=== PATIENT | male | born 1960 | race Caucasian/White ===

== ENCOUNTER 2023-05-18 09:12 | Outpatient (CLI) | payer MEDICARE, BC ==
[2023-05-18 12:25] LABS: HCT - HEMATOCRIT 46.3 % (42.0-52.0); HGB - HEMOGLOBIN 15.5 g/dL (14.0-18.0); MEAN CORPUSCULAR HEMOGLOBIN 30.6 pg (27.0-31.0); MEAN CORPUSCULAR HGB CONC 33.5 g/dL (32.0-36.0); MEAN CORPUSCULAR VOLUME 91.5 fL (80.0-94.0); MEAN PLATELET VOLUME 12.4 fL (7.4-11.4); RED BLOOD COUNT 5.06 10^6/uL (4.70-6.10); RED CELL DISTRIBUTION WIDTH 13.4 % (12.0-15.0); WHITE BLOOD COUNT 6.6 x10^3/uL (4.8-10.8)
[2023-05-18 12:55] LABS: ALBUMIN 4.4 g/dL (3.2-5.5); ALBUMIN/GLOBULIN RATIO 2.1 (1.0-2.2); ALKALINE PHOSPHATASE 87 IU/L (42-121); ALT ALANINE AMINOTRANSFERASE 23 IU/L (10-60); AST ASPARTATE AMINOTRANSFERASE 22 IU/L (10-42); BILIRUBIN,TOTAL 0.7 mg/dL (0.2-1.0); BUN - BLOOD UREA NITROGEN 16 mg/dL (6-20); CALCIUM 9.9 mg/dL (8.5-10.3); CARBON DIOXIDE - CO2 31 mmol/L (21-32); CHLORIDE 107 mmol/L (101-111); CHOL/HDL RATIO 3.7 (<5.0); CHOLESTEROL 168 mg/dL; CREATININE 0.9 mg/dL (0.6-1.3); GFR - MDRD 85 (>89); GLUCOSE 120 mg/dL (74-104); HDL CHOLESTEROL 45 mg/dL; LDL CHOLESTEROL,CALCULATED 106 mg/dL; LDL/HDL RATIO 2.4 (<3.6); POTASSIUM 4.7 mmol/L (3.5-4.5); SODIUM 141 mmol/L (135-145); TOTAL PROTEIN 6.5 g/dL (6.4-8.9); TRIGLYCERIDES 86 mg/dL (48-352); VLDL CHOLESTEROL 17 mg/dL
[2023-05-18 13:31] LABS: ESTIMATED AVERAGE GLUCOSE 114 mg/dL (70-100); HEMOGLOBIN A1c% 5.6 % (4.27-6.07)
[2023-05-18 18:38] LABS: FECAL OCCULT BLOOD (FIT) POSITIVE (NEGATIVE)
== END 2023-05-18 09:13 | disposition home or self-care (01) ==
LOC: LAB.N 09:12
PROVIDERS: ATTEND Family Medicine
DX: I10 Essential (primary) hypertension (principal); K21.9 Gastro-esophageal reflux disease without esophagitis; E78.5 Hyperlipidemia, unspecified; I25.2 Old myocardial infarction; I25.10 Atherosclerotic heart disease of native coronary artery without angina pectoris; Z12.11 Encounter for screening for malignant neoplasm of colon
CPT/HCPCS: 36415; 80053; 80061; 82274; 83036; 83721; 85027

== ENCOUNTER 2023-08-09 08:00 | Outpatient (CLI) | payer MEDICARE, OTHER ==
--- NOTE | 2023-08-09 15:13 | XRAY Report ---
PROCEDURE: Lumbar Spine 2 View INDICATIONS: LUMBAGO WITH SCIATICA, RIGHT SIDE TECHNIQUE: 3 views of the lumbar spine were acquired. COMPARISON: None. FINDINGS: Bones: 5 [id number]-[id number] vertebrae are present. There is trace retrolisthesis of L5 on S1. Multilev el degenerative changes are present most significant at L4-5 and L5-S1. Anterior osteophytes are most prominent at L2 and L3. No vertebral body compression fractures. No suspicious bony lesions. Soft tissues: Overlying bowel gas pattern is normal. No suspicious soft tissue calcifications. IMPRESSION: Prominent foraminal narrowing at L5-S1. Reviewed by: Lakisha Perry MD on 08/09/2023 3:11 PM PST Approved by: Lakisha Perry MD on 08/09/2023 3:11 PM PST Station ID: [id number]
== END 2023-08-09 23:59 | disposition home or self-care (01) ==
LOC: DI.S 08:00
PROVIDERS: ATTEND Physician Assistant
DX: M54.41 Lumbago with sciatica, right side (principal); M48.07 Spinal stenosis, lumbosacral region

== ENCOUNTER 2023-08-15 07:01 | Outpatient (CLI) | payer MEDICARE, OTHER ==
--- NOTE | 2023-08-15 09:41 | MRI Report ---
PROCEDURE: LUMBAR SPINE WO INDICATIONS: LUMBOSACRAL RADICULOPATHY TECHNIQUE: Noncontrast sagittal T1 spin echo and T2 fast echo, sagittal STIR, axial T1 and T2 fast spin echo thr ough the lumbar spine. In cases with scoliosis, additional coronal T2 fast spin echo may be performe d. COMPARISON: Lumbar spine plain films dated 08/09/2023. FINDINGS: Image quality: Excellent. Alignment and Curvature: There is normal bony alignment. Bone Marrow: Marrow is of normal overall signal. No acute vertebral body compression fractures. Spinal Cord: Conus medullaris terminates at the L2 level. Visualized cord demonstrates normal signa l and size. Paraspinous Soft Tissues: No paravertebral masses. Incidental note is made of severe bilateral foraminal narrowing at T11-T12, seen on sagittal imaging. T12-L1: Left facet hypertrophy. No canal stenosis. Mild left foraminal stenosis. L1-L2: Short pedicles. Minimal disc bulge. Facet hypertrophy. Borderline canal stenosis. Moderate bilateral foraminal stenosis with flattening deformity on the exiting bilateral L1 nerve roots. L2-L3: Short pedicles. Disc bulge. Facet hypertrophy. Borderline canal stenosis. Mild bilateral fo raminal stenosis. L3-L4: Short pedicles. Disc bulge. Prominent facet hypertrophy. Severe canal stenosis. There is an anterior medially directed facet joint cyst off of the left facet which contributes to central canal stenosis as well as severe left foraminal stenosis with left foraminal L3 nerve root impingement. L4-L5: Short pedicles. Disc bulge. Prominent facet and ligament hypertrophy. Severe canal stenosis. Moderate to severe right foraminal narrowing with a degree of right foraminal L4 nerve root impingem ent. Moderate left foraminal narrowing. L5-S1: Diffuse disc bulge with mild superimposed central posterior disc protrusion. Borderline jasmin l stenosis. Facet hypertrophy. Moderate to severe bilateral foraminal narrowing with a degree of bila teral foraminal L5 nerve root impingement. IMPRESSION: 1. 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 2. Canal stenosis is borderline at L2-L3, severe at L3-L4, and severe at L4-L5. 3. At L3-L4, and anterior medially directed facet joint cyst off the left facet contributes to centra l canal stenosis as well as severe left foraminal stenosis. 4. Multilevel foraminal narrowing as described above. Findings include severe left foraminal narrowin g at L3-L4, moderate to severe right foraminal narrowing at L4-L5, and moderate to severe bilateral f oraminal narrowing at L5-S1. 5. Incidental note made of severe bilateral foraminal narrowing at T11-T12, seen on the sagittal imag es. Reviewed by: Victor Hugo Guerra MD on 08/15/2023 9:40 AM PST Approved by: Victor Hugo Guerra MD on 08/15/2023 9:40 AM PST Station ID: [id number]
== END 2023-08-15 07:02 | disposition home or self-care (01) ==
LOC: DI 07:01
PROVIDERS: ATTEND Physician Assistant
DX: M47.26 Other spondylosis with radiculopathy, lumbar region (principal); M47.27 Other spondylosis with radiculopathy, lumbosacral region; M48.061 Spinal stenosis, lumbar region without neurogenic claudication; M71.38 Other bursal cyst, other site; M48.07 Spinal stenosis, lumbosacral region

== ENCOUNTER 2023-09-15 10:32 | Outpatient (CLI) | payer MEDICARE, OTHER ==
[2023-09-15 14:57] LABS: BASOPHILS # (AUTO) 0.1 10^3/uL (0.0-0.1); BASOPHILS % (AUTO) 1.7 %; EOSINOPHILS # (AUTO) 0.3 10^3/uL (0.0-0.7); EOSINOPHILS % (AUTO) 5.3 %; HCT - HEMATOCRIT 47.9 % (42.0-52.0); HGB - HEMOGLOBIN 15.7 g/dL (14.0-18.0); LYMPHOCYTES % (AUTO) 33.4 %; MEAN CORPUSCULAR HEMOGLOBIN 30.9 pg (27.0-31.0); MEAN CORPUSCULAR HGB CONC 32.8 g/dL (32.0-36.0); MEAN CORPUSCULAR VOLUME 94.3 fL (80.0-94.0); MEAN PLATELET VOLUME 12.4 fL (7.4-11.4); MONOCYTES # (AUTO) 0.5 10^3/uL (0.0-1.0); MONOCYTES % (AUTO) 8.7 %; NEUTROPHILS % (AUTO) 50.6 %; PLT - PLATELET COUNT 195 10^3/uL (130-450); RED BLOOD COUNT 5.08 10^6/uL (4.70-6.10); WHITE BLOOD COUNT 5.9 x10^3/uL (4.8-10.8)
[2023-09-15 15:46] LABS: ALBUMIN 4.1 g/dL (3.2-5.5); ALKALINE PHOSPHATASE 66 IU/L (42-121); ALT ALANINE AMINOTRANSFERASE 21 IU/L (10-60); AST ASPARTATE AMINOTRANSFERASE 19 IU/L (10-42); BILIRUBIN,TOTAL 0.6 mg/dL (0.2-1.0); BUN - BLOOD UREA NITROGEN 21 mg/dL (6-20); CALCIUM 9.4 mg/dL (8.5-10.3); CARBON DIOXIDE - CO2 26 mmol/L (21-32); CHLORIDE 108 mmol/L (101-111); CHOL/HDL RATIO 4.7 (<5.0); CHOLESTEROL 159 mg/dL; CREATININE 0.9 mg/dL (0.6-1.3); GFR - MDRD 85 (>89); GLUCOSE 100 mg/dL (74-104); HDL CHOLESTEROL 34 mg/dL; LDL CHOLESTEROL,CALCULATED 104 mg/dL; LDL/HDL RATIO 3.1 (<3.6); POTASSIUM 4.5 mmol/L (3.5-4.5); SODIUM 141 mmol/L (135-145); TOTAL PROTEIN 6.2 g/dL (6.4-8.9); TRIGLYCERIDES 105 mg/dL (48-352); VLDL CHOLESTEROL 21 mg/dL
[2023-09-15 15:59] LABS: THYROID STIMULATING HORMONE 1.45 uIU/mL (0.34-5.60)
[2023-09-15 20:39] LABS: ESTIMATED AVERAGE GLUCOSE 120 mg/dL (70-100); HEMOGLOBIN A1c% 5.8 % (4.27-6.07)
== END 2023-09-15 10:33 | disposition home or self-care (01) ==
LOC: LAB.S 10:32
PROVIDERS: ATTEND Physician Assistant Medical
DX: Z13.9 Encounter for screening, unspecified (principal)
CPT/HCPCS: 36415; 80053; 80061; 83036; 83721; 84153; 84443; 85025

== ENCOUNTER 2023-10-20 08:04 | Day surgery (SDC) | payer MEDICARE, OTHER ==
[2023-10-20] MEDS: LACTATED RINGERS 1,000 ML IV ONE ×2 (08:14→10:14)
--- NOTE | 2023-10-20 09:02 | ANESTHESIA ---
Pre-Anesthesia VS, & Labs - Diagnosis SCREENING - Procedure COLONOSCOPY Height: 6 ft 3 in Weight (kg): 99 kg Body Mass Index: 27.3 BMI Classification: Overweight - NPO >8 hours Last Fluid Intake: 0530 PREP Home Medications and Allergies Aspirin Chewable [[place] Aspirin] 1 tab ORAL DAILY 06/03/23 Atorvastatin Calcium 40 mg PO DAILY 06/03/23 Clopidogrel [Plavix] 75 mg PO DAILY 06/03/23 Lisinopril [Zestril] 20 mg PO 06/03/23 Nitroglycerin [Nitrostat] 0.6 mg SL DAILY PRN 06/03/23 Bolt-3/Dha/Epa/Fish Oil [Fish Oil 1,000 mg Softgel] 1 cap ORAL DAILY 06/03/23 carvediloL [Coreg] 1 tab ORAL DAILY 06/03/23 Allergies/Adverse Reactions: Allergies Allergy/AdvReac Type Severity Reaction Status Date / Time Penicillins AdvReac Rash Verified 10/20/23 08:25 Anes History & Medical History - Anesthetic History Anesthesia Complications: reports: No previous complications Family history of Anesthesia Complications: Denies - Medical History Cardiovascular: reports: Hypertension (CANCELLED IN AUG FOR HTN, TOOK LISINOPRIL THIS AM, [place] TWO YEARS AGO, UNABLE TO STENT VESSEL, TAKES PLAVIX, NEVER NITRO, ACTIVE NOW , PLAYS PICKLEBALL WITHOUT CP/SOB), High cholesterol, Other Pulmonary: reports: None Gastrointestinal: reports: None, Other Urinary: reports: Other Musculoskeletal: reports: None Endocrine/Autoimmune: reports: None Skin: reports: Other - Surgical History General: reports: Colonoscopy Cardiothoracic: reports: Other Orthopedic: reports: Other Dermatologic: reports: Skin cancer surgery Results - EKG Results EKG Comparison: Reviewed EKG, Normal EKG Exam General: Alert Dental: WNL Mouth Openin Fingerbreadth Neck Mobility: Normal Mallampati classification: II Thyromental Distance: 4-6 cm Plan Anesthesia Type: Total IV Consent for Procedure(s) Verified and Reviewed: Yes Code Status: Attempt Resuscitation ASA classification: 2-Mild systemic disease Is this case an emergency?: No
[2023-10-20] MEDS ORDERED: PROPOFOL 500 MG/50 ML 500 MG/50 ML VIAL ONE (09:29)
[2023-10-20] MEDS ORDERED: PROPOFOL 200 MG/20 ML VIAL IVP ONE (09:31)
--- NOTE | 2023-10-20 09:36 | HISTORY & PHYSICAL EXAMINATION ---
Chief Complaint - Chief Complaint Chief Complaint: here for colonoscopy History of Present Illness - History Obtained From Records Reviewed: yes History obtained from: pt Exam Limitations: none - History of Present Illness HPI Comment/Other: here for screening colonoscopy. no gi problems History - Past Medical History Cardiovascular: reports: Hypertension (CANCELLED IN DEC FOR HTN, TOOK LISINOPRIL THIS AM, [place] TWO YEARS AGO, UNABLE TO STENT VESSEL, TAKES PLAVIX, NEVER NITRO, ACTIVE NOW , PLAYS PICKLEBALL WITHOUT CP/SOB), High cholesterol, Other Respiratory: reports: None Endocrine/Autoimmune: reports: None GI: reports: None, Other : reports: Other HEENT: reports: None Psych: reports: None Musculoskeletal: reports: None Derm: reports: Other MRSA Hx?: No - Past Surgical History General: reports: Colonoscopy Ortho: reports: Other Cardiovascular: reports: Other Derm: reports: Skin cancer surgery Meds/Allgy - Home Medications Home Medications: Ambulatory Orders Medication Instructions Recorded Confirmed Aspirin Chewable [[place] 1 tab ORAL DAILY 06/03/23 10/20/23 Aspirin] Atorvastatin Calcium 40 mg PO DAILY 06/03/23 10/20/23 Clopidogrel [Plavix] 75 mg PO DAILY 06/03/23 10/20/23 Lisinopril [Zestril] 20 mg PO 06/03/23 Nitroglycerin [Nitrostat] 0.6 mg SL DAILY PRN 06/03/23 10/20/23 Felda-3/Dha/Epa/Fish Oil [Fish Oil 1 cap ORAL DAILY 06/03/23 06/03/23 1,000 mg Softgel] carvediloL [Coreg] 1 tab ORAL DAILY 06/03/23 10/20/23 - Allergies Allergies/Adverse Reactions: Allergies Allergy/AdvReac Type Severity Reaction Status Date / Time Penicillins AdvReac Rash Verified 10/20/23 08:25 Review of Systems - Other Findings Other Findings: 10 pt ros as above otherwise unremarkable Exam - Physical Exam General Appearance: positive: No acute distress, Alert Eyes Bilateral: positive: PERRL, EOMI ENT: positive: No signs of dehydration Neck: positive: No JVD, Trachea midline Respiratory: positive: No respiratory distress Cardiovascular: positive: Regular rate & rhythm Abdomen: positive: No distention Neurologic/Psychiatric: positive: Oriented x3 Conclusion/Plan - Problem List (1) Colon cancer screening Conclusion/Plan: plan colonoscopy. parq held and consent obtained
[2023-10-20 10:41] VITALS: BP 147/93; O2SAT 97
--- NOTE | 2023-10-24 15:27 | ANESTHESIA POST OP EVALUATION ---
Anesthesia Post Eval - Post Anesthesia Eval Vitals: Last Vital Signs Temp 36.2 C L 10/20/23 10:12 Pulse 70 10/20/23 10:36 Resp 16 10/20/23 10:36 BP 147/93 H 10/20/23 10:36 Pulse Ox 97 10/20/23 10:36 O2 Flow Rate CV Function Including HR & BP: Stable Pain Control: Satisfactory Nausea & Vomiting: Negative Mental Status: Baseline Respiratory Status: Airway Patent Hydration Status: Satisfactory Anesthesia Complications: None
== END 2023-10-20 08:05 | disposition home or self-care (01) ==
LOC: SDS 08:04
PROVIDERS: ATTEND Surgery
PROC: 0DBM8ZZ Excision of Descending Colon, Via Natural or Artificial Opening Endoscopic (ICD-10-PCS; principal; 2023-10-20 09:35)
DX: Z12.11 Encounter for screening for malignant neoplasm of colon (principal); D12.4 Benign neoplasm of descending colon; I10 Essential (primary) hypertension; I25.2 Old myocardial infarction; Z79.02 Long term (current) use of antithrombotics/antiplatelets
CPT/HCPCS: 45380; J7120